=== PATIENT | female | born 1980 | race Caucasian/White ===

== ENCOUNTER 2018-04-15 12:48 | Emergency (ER) | payer OTHER ==
[~2018-04-15] VITALS: Ht 167.6 cm; Wt 97.5 kg
--- NOTE | ~2018-04-15 | EKG ---
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
[2018-04-15] MEDS ORDERED: EFFEXOR XR75 MG PO (13:12)
[2018-04-15] MEDS ORDERED: WELLBUTRIN 100100 MG PO (13:13)
[2018-04-15] MEDS ORDERED: CONTRAVE ER 8-1 EACH PO (13:13)
[2018-04-15] MEDS ORDERED: SYNTHROID88 MCG PO (13:15)
[2018-04-15] MEDS ORDERED: IBUPROFEN 800800 M1 PO (13:15)
[2018-04-15 13:34] LABS: URINE BILIRUBIN NEGATIVE (Negative); URINE BLOOD 2+ (Negative); URINE CLARITY SL CLOUDY; URINE COLOR YELLOW; URINE GLUCOSE-RANDOM* NEGATIVE (Negative); URINE KETONES NEGATIVE (Negative); URINE LEUKOCYTES-REFLEX NEGATIVE (Negative); URINE NITRITE-REFLEX NEGATIVE (Negative); URINE PROTEIN (DIPSTICK) NEGATIVE (Negative); URINE SPECIFIC GRAVITY 1.015 (1.005-1.035)
[2018-04-15 13:35] LABS: ABSOLUTE NEUTROPHILS 9.6 thou/uL (1.4-8.2); BASOPHILS 0.4 % (0.0-2.0); EOSINOPHILS 0.5 % (0.0-3.0); HEMATOCRIT 43.7 % (37.0-47.0); HEMOGLOBIN 15.2 gm/dL (12.0-15.0); LYMPHOCYTES 5.6 % (24.0-44.0); MCH 29.6 pg (26.0-34.0); MCHC 34.8 g/dL (28.0-37.0); MCV 84.9 fL (80.0-100.0); MONOCYTES 3.1 % (1.0-8.0); PLATELET COUNT 272 thou/uL (150-400); POLYS 90.4 % (36.0-66.0); RBC 5.14 mil/uL (4.20-5.00); RDW 13.3 % (10.5-14.5); WBC 10.6 thou/uL (4.0-11.0)
[2018-04-15 13:39] LABS: CALCIUM 8.8 mg/dL (8.5-10.1); CREATININE 0.8 mg/dL (0.6-1.0); POTASSIUM 3.5 mmol/L (3.5-5.1)
[2018-04-15 13:44] LABS: CASTS None Seen /LPF (None Seen); CRYSTALS None Seen /LPF (None Seen); SQUAMOUS 4-10 Moderate /LPF (0-3); URINE RBC None Seen /HPF (0-2); URINE WBC-REFLEX 0-5 Rare /HPF (0-5)
[2018-04-15 13:45] LABS: ALBUMIN 3.8 g/dL (3.4-5.0); TOTAL BILIRUBIN 0.5 mg/dL (<0.1-1.0); TOTAL PROTEIN 7.8 g/dL (6.4-8.2)
[2018-04-15 16:10] VITALS: BP 158/96
[2018-04-15] MEDS ORDERED: PEPCID20 MG PO (17:29)
[2018-04-15] MEDS ORDERED: ZOFRAN4 MG PO (17:29)
== END 2018-04-15 17:39 | disposition home or self-care (01) ==
LOC: ER 12:48
PROVIDERS: Emergency Medicine
DX: R11.2 Nausea with vomiting, unspecified (principal); R10.13 Epigastric pain; R19.7 Diarrhea, unspecified